=== PATIENT | male | born 1990 | race African-American/Black ===

== ENCOUNTER 2021-05-25 03:12 | Emergency (ER) | payer MEDICAID ==
[~2021-05-25] VITALS: Ht 190.5 cm; Wt 142.4 kg
[2021-05-25] MEDS ORDERED: LIDOCAINE HCL 2% 20 ML VIAL TP ONE (04:00)
[2021-05-25] MEDS ORDERED: NEOMY/BACITRA/POLYMYXIN B OINT UD PACKET TP ONE ×2 (04:00→04:10)
[2021-05-25] MEDS ORDERED: SODIUM BICARBONATE 4.2 % (NEUT) 5 ML VIAL TP ONE (04:00)
[2021-05-25] MEDS ORDERED: SODIUM BICARBONATE 4.2 % (NEUT) 5 ML VIAL ONE (04:01)
--- NOTE | 2021-05-25 04:27 | NUR ---
Patient discharged to home in stable condition. Written and verbal after care instructions given. Patient verbalizes understanding of instructions. Stressed follow up or return to ER for worsening s/s.
[2021-05-25 04:29] VITALS: BP 131/79
== END 2021-05-25 04:30 | disposition home or self-care (01) ==
LOC: ER 03:14
DX: S61.411A Laceration without foreign body of right hand, initial encounter (principal); W01.110A Fall on same level from slipping, tripping and stumbling with subsequent striking against sharp glass, initial encounter; Y93.83 Activity, rough housing and horseplay; Y92.89 Other specified places as the place of occurrence of the external cause; R03.0 Elevated blood-pressure reading, without diagnosis of hypertension
CPT/HCPCS: 12001; 73130; 99283; J3490; A4217; A4663